=== PATIENT | male | born 1955 | race Caucasian/White ===

== ENCOUNTER 2019-04-16 02:06 | Observation (INO) | payer MEDICARE ==
[~2019-04-16] VITALS: Ht 162.6 cm; Wt 76.2 kg
[2019-04-16 02:33] LABS: BASO % 0 % (0-3); EOS % 1 % (0-3); HEMOGLOBIN 15.2 g/dL (13.0-17.5); LYMPH # 0.7 x10^3/uL (1.0-4.8); LYMPH % 11 % (24-48); MEAN CORPUSCULAR HEMOGLOBIN 32 pg (25-35); MEAN CORPUSCULAR HGB CONC 34 g/dL (31-37); MEAN CORPUSCULAR VOLUME 94 fL (79-100); MONO # 0.3 x10^3/uL (0.0-1.1); MONO % 4 % (0-9); NEUT % 85 % (31-73); PLATELET COUNT 231 x10^3/uL (140-400); RED CELL DISTRIBUTION WIDTH 13.6 % (11.5-14.5)
[2019-04-16 02:47] LABS: PROTHROMBIN TIME PATIENT 12.3 SEC (11.7-14.0)
[2019-04-16 02:49] LABS: CREATININE 1.1 mg/dL (0.7-1.3); GFR 67.2; POTASSIUM 4.4 mmol/L (3.5-5.1)
[2019-04-16 02:55] LABS: ALBUMIN 3.9 g/dL (3.4-5.0); ALBUMIN/GLOBULIN RATIO 1.2 (1.0-1.7); TOTAL BILIRUBIN 0.4 mg/dL (0.2-1.0); TOTAL PROTEIN 7.1 g/dL (6.4-8.2)
[2019-04-16] MEDS ORDERED: ASPIRIN CHEWABLE 81 MG TABLET. PO ONE (03:00)
[2019-04-16] MEDS ORDERED: NITROGLYCERIN OINT 1 GM PACKET. TP ONE (03:00)
[2019-04-16] MEDS ORDERED: NITROGLYCERIN SUBLINGUAL 0.4 MG BOTTLE OF 25. SL PRN (03:00)
--- NOTE | 2019-04-16 03:05 | PHYS DOC ---
Past Medical History Past Medical History: Diabetes-Type II, Hepatitis Additional Past Medical Histor: HEP A Past Surgical History: Tonsillectomy Additional Past Surgical Histo: Hernia Alcohol Use: Occasionally Drug Use: None Adult General Chief Complaint Chief Complaint: CHEST PAIN HPI HPI Patient is a 63 year old discomfort like an uneasiness in his chest STARTED today. Nonradiating is related to upper abdominal discomfort earlier in the DAY. he ATE some spicy food around 8 PM he started to feel worse again. He drove himself to the ER. HE PARKED AT THE [facility]ISIT[facility] SECTION of the hospital by accident and so he actually WALKED AROUND the entire hospital said that NO WORSENING OF HIS Chest pain BUT with some mild shortness of breath associated with that. Does have a history of DAD HAD HEART PROBLEM. ALSO HX OF ELEVATED hemoglobin A1c. Review of Systems Review of Systems Constitutional: Denies fever or chills [] Eyes: Denies change in visual acuity, redness, or eye pain [] HENT: GI: Denies abdominal pain, nausea, vomiting, bloody stools or diarrhea [] : Denies dysuria or hematuria [] Musculoskeletal: Denies back pain or joint pain [] Integument: Denies rash or skin lesions [] Neurologic: Denies headache, focal weakness or sensory changes [] Endocrine: Denies polyuria or polydipsia [] All other systems were reviewed and found to be within normal limits, except as documented in this note. Current Medications Current Medications Current Medications Medications (Trade) Dose Ordered Sig/Amy Start Time Stop Time Status Last Admin Dose Admin Aspirin (Children'S Aspirin) 324 mg 1X ONCE 04/16/19 03:00 04/16/19 03:01 04/16/19 02:39 324 MG Nitroglycerin (Nitro-Bid Oint) 1 inch 1X ONCE 04/16/19 03:00 04/16/19 03:01 04/16/19 02:40 1 INCH Allergies Allergies Allergies Coded Allergies Type Severity Reaction Last Updated Verified No Known Drug Allergies 04/15/16 No Physical Exam Physical Exam Constitutional: Well developed, well nourished, no acute distress, non-toxic appearance. [] HENT: Normocephalic, atraumatic, bilateral external ears normal, oropharynx moist, no oral exudates, nose normal. [] Eyes: PERRLA, EOMI, conjunctiva normal, no discharge. [] Neck: Normal range of motion, no tenderness, supple, no stridor. [] Cardiovascular:Heart rate regular rhythm, no murmur [] Lungs & Thorax: Bilateral breath sounds clear to auscultation [] Abdomen: Bowel sounds normal, soft, no tenderness, no masses, no pulsatile masses. [] Skin: Warm, dry, no erythema, no rash. [] Back: No tenderness, no CVA tenderness. [] Extremities: No tenderness, no cyanosis, no clubbing, ROM intact, no edema. [] Neurologic: Alert and oriented X 3, normal motor function, normal sensory function, no focal deficits noted. [] Psychologic: Affect normal, judgement normal, mood normal. [] Current Patient Data Vital Signs Vital Signs Date Time Temp Pulse Resp B/P (MAP) Pulse Ox O2 Delivery O2 Flow Rate FiO2 04/16/19 02:40 57 181/83 04/16/19 02:10 97.9 18 97 Room Air 97.9 Lab Values Laboratory Tests Test 04/16/19 02:24 White Blood Count 7.0 x10^3/uL (4.0-11.0) Red Blood Count 4.80 x10^6/uL (4.30-5.70) Hemoglobin 15.2 g/dL (13.0-17.5) Hematocrit 45.0 % (39.0-53.0) Mean Corpuscular Volume 94 fL (79-100) Mean Corpuscular Hemoglobin 32 pg (25-35) Mean Corpuscular Hemoglobin Concent 34 g/dL (31-37) Red Cell Distribution Width 13.6 % (11.5-14.5) Platelet Count 231 x10^3/uL (140-400) Neutrophils (%) (Auto) 85 % (31-73) H Lymphocytes (%) (Auto) 11 % (24-48) L Monocytes (%) (Auto) 4 % (0-9) Eosinophils (%) (Auto) 1 % (0-3) Basophils (%) (Auto) 0 % (0-3) Neutrophils # (Auto) 6.0 x10^3uL (1.8-7.7) Lymphocytes # (Auto) 0.7 x10^3/uL (1.0-4.8) L Monocytes # (Auto) 0.3 x10^3/uL (0.0-1.1) Eosinophils # (Auto) 0.0 x10^3/uL (0.0-0.7) Basophils # (Auto) 0.0 x10^3/uL (0.0-0.2) Platelet Estimate Pending Prothrombin Time 12.3 SEC (11.7-14.0) Prothrombin Time INR 0.9 (0.8-1.1) Sodium Level 137 mmol/L (136-145) Potassium Level 4.4 mmol/L (3.5-5.1) Chloride Level 101 mmol/L (98-107) Carbon Dioxide Level 26 mmol/L (21-32) Anion Gap 10 (6-14) Blood Urea Nitrogen 17 mg/dL (8-26) Creatinine 1.1 mg/dL (0.7-1.3) Estimated GFR (Cockcroft-Gault) 67.2 BUN/Creatinine Ratio 15 (6-20) Glucose Level 276 mg/dL (70-99) H Calcium Level 9.0 mg/dL (8.5-10.1) Total Bilirubin 0.4 mg/dL (0.2-1.0) Aspartate Amino Transferase (AST) 20 U/L (15-37) Alanine Aminotransferase (ALT) 31 U/L (16-63) Alkaline Phosphatase 85 U/L (46-116) Troponin I Quantitative < 0.017 ng/mL (0.000-0.055) Total Protein 7.1 g/dL (6.4-8.2) Albumin 3.9 g/dL (3.4-5.0) Albumin/Globulin Ratio 1.2 (1.0-1.7) Laboratory Tests 04/16/19 02:24 Laboratory Tests 04/16/19 02:24 EKG EKG []G shows a normal sinus rhythm with rate of 67. T-wave inversions anteriorly which is new. COMPARED TO 04/15/16 Radiology/Procedures Radiology/Procedures [] Impressions: CXR MY READ NEG ACUTE. Course & Med Decision Making Course & Med Decision Making Pertinent Labs and Imaging studies reviewed. (See chart for details) []Patient is a 63-year-old male with a prior history of diabetes family history of coronary disease presenting with some vague chest discomfort. Blood pressure was mildly elevated we gave aspirin and Nitropaste in the emergency room EKG did have a change no STEMI was seen troponin negative after a whole day of symptoms patient be admitted to the [facility] SERVICE FOR FURTHER EVALUATION, SERIAL TROPS. CARDS CONSULT ETC. DOES NOT SOUND LIKE PE OR DISSECTION TO ME Dragon Disclaimer Dragon Disclaimer This electronic medical record was generated, in whole or in part, using a voice recognition dictation system. Departure Departure Impression: Primary Impression: Chest pain Disposition: ADMITTED INPATIENT Admitting Physician: [facility] Condition: STABLE Referrals: SERA COUCH JR, MD (PCP) CONSTANTIN CRONIN MD Apr 16, 2019 03:05
[2019-04-16 04:38] LABS: % EOS 1 % (0-5); % LYMPHS 13 % (24-48); % MONOS 5 % (0-10); % SEGS 81 % (35-66); PLT ESTIMATE ADEQUATE (ADEQUATE)
--- NOTE | 2019-04-16 07:40 | RAD ---
Indication:Chest pain TECHNIQUE:Portable AP chest X-ray COMPARISON: None FINDINGS: Patient is slightly rotated to the left side. Heart is normal in size. Most likely a small calcified granuloma in the right midlung zone. Otherwise, lungs are clear. No pneumothorax or pleural effusion. Visualized bony thorax is within normal limits. IMPRESSION: No acute pulmonary process. Electronically signed by: Tereso Valencia DO (04/16/2019 7:37 AM) [facility]
[2019-04-16] MEDS ORDERED: PIOG45TA40 PO (08:59)
[2019-04-16] MEDS ORDERED: GLIM2TAB2 PO (08:59)
[2019-04-16] MEDS ORDERED: ASPI-612 PO (08:59)
[2019-04-16] MEDS ORDERED: METF500T16 PO (08:59)
[2019-04-16 09:00] VITALS: BP 104/62
[2019-04-16] MEDS ORDERED: DEXTROSE 50% 25 GM / 50ML DISP.SYRIN. IV PRN (09:15)
[2019-04-16] MEDS ORDERED: FAMOTIDINE 20 MG TABLET. PO ONE (09:15)
[2019-04-16] MEDS ORDERED: PIOGLITAZONE 15 MG TABLET. PO SCH (10:00)
[2019-04-16 11:00] VITALS: BP 126/63
[2019-04-16] MEDS ORDERED: ASPI325T8 PO (11:20)
[2019-04-16] MEDS ORDERED: SIMV10TA3 PO (11:20)
--- NOTE | 2019-04-16 11:45 | PDOC2 ---
CONSULT Date of Consult Date of Consult DATE: 04/16/19 TIME: 11:45 Reason for Consult Reason for Consult: Chest pain Referring Physician Referring Physician: Dr. Garcia Identification/Chief Complaint Chief Complaint Chest pain Source Source: Chart review, Patient History of Present Illness Reason for Visit: 63-year-old male presented complaining of retrosternal chest discomfort that is slightly worse with exertion. He used to exercise and take ballroom dancing lessons in the past but has been finding it difficult with shortness of breath and fatigue while doing so since last 2 weeks. He had abdominal discomfort after eating spicy food yesterday but he stated that the chest pain he had before this episode was different. He denied any orthopnea/PND, palpitations or syncope. He has strong family history of premature coronary artery disease with his dad having heart attack when he was 50 years age. Past Medical History Past Medical History Hyperlipidemia Diabetes mellitus type 2 Past Surgical History Past Surgical History: Tonsillectomy Family History Family History: Coronary Artery Disease Social History Social History Patient denied any smoking alcohol or drug use Current Medications Current Medications Current Medications Aspirin (Children'S Aspirin) 324 mg 1X ONCE PO Last administered on 04/16/19at 02:39; Start 04/16/19 at 03:00; Stop 04/16/19 at 03:01; Status DC Nitroglycerin (Nitro-Bid Oint) 1 inch 1X ONCE TP Last administered on 04/16/19at 02:40; Start 04/16/19 at 03:00; Stop 04/16/19 at 03:01; Status DC Nitroglycerin (Nitrostat) 0.4 mg PRN Q5MIN PRN SL CHEST PAIN; Start 04/16/19 at 03:00; Stop 04/17/19 at 02:59 Insulin Human Lispro (HumaLOG) 0-7 UNITS TIDWMEALS SQ ; Start 04/16/19 at 12:00 Dextrose (Dextrose 50%-Water Syringe) 12.5 gm PRN Q15MIN PRN IV SEE COMMENTS; Start 04/16/19 at 09:15 Famotidine (Pepcid) 20 mg 1X ONCE PO Last administered on 04/16/19at 10:16; Start 04/16/19 at 09:15; Stop 04/16/19 at 09:30; Status DC Famotidine (Pepcid) 20 mg BID PO ; Start 04/16/19 at 21:00 Glimepiride (Amaryl) 2 mg BID PO ; Start 04/16/19 at 21:00 Pioglitazone HCl (Actos) 45 mg DAILY PO Last administered on 04/16/19at 10:16; Start 04/16/19 at 10:00 Active Scripts Active Aspirin 325 Mg Tablet 1 Tab PO DAILY Simvastatin 10 Mg Tablet 1 Tab PO QHS Reported Glimepiride 2 Mg Tablet 2 Mg PO BID Actos (Pioglitazone Hcl) 45 Mg Tablet 1 Tab PO DAILY Metformin Hcl 500 Mg Tablet 500 Mg PO BIDWMEALS Allergies Allergies: Coded Allergies: No Known Drug Allergies (Unverified , 04/15/16) ROS PSYCHOLOGICAL ROS: No: Hallucinations Eyes: No Loss of vision HEENT: No: Epistaxis Respiratory: No: Cough, Hemoptysis Cardiovascular: yes Chest Pain Gastrointestinal: No Vomiting Genitourinary: No Hematuria Neurological: No Seizures Skin: No Rash Physical Exam General: Alert, Oriented X3 HEENT: Atraumatic, PERRLA Lungs: Clear to auscultation Heart: Regular rate Abdomen: Soft, No tenderness Extremities: No edema Psych/Mental Status: Mood NL Vitals VITALS Vital Signs Date Time Temp Pulse Resp B/P (MAP) Pulse Ox O2 Delivery O2 Flow Rate FiO2 04/16/19 09:00 98.4 56 18 104/62 (76) 100 Room Air 98.4 Labs Labs Laboratory Tests Test 04/16/19 02:24 04/16/19 05:55 04/16/19 09:10 04/16/19 09:14 White Blood Count 7.0 x10^3/uL (4.0-11.0) Red Blood Count 4.80 x10^6/uL (4.30-5.70) Hemoglobin 15.2 g/dL (13.0-17.5) Hematocrit 45.0 % (39.0-53.0) Mean Corpuscular Volume 94 fL (79-100) Mean Corpuscular Hemoglobin 32 pg (25-35) Mean Corpuscular Hemoglobin Concent 34 g/dL (31-37) Red Cell Distribution Width 13.6 % (11.5-14.5) Platelet Count 231 x10^3/uL (140-400) Neutrophils (%) (Auto) 85 % (31-73) Lymphocytes (%) (Auto) 11 % (24-48) Monocytes (%) (Auto) 4 % (0-9) Eosinophils (%) (Auto) 1 % (0-3) Basophils (%) (Auto) 0 % (0-3) Neutrophils # (Auto) 6.0 x10^3uL (1.8-7.7) Lymphocytes # (Auto) 0.7 x10^3/uL (1.0-4.8) Monocytes # (Auto) 0.3 x10^3/uL (0.0-1.1) Eosinophils # (Auto) 0.0 x10^3/uL (0.0-0.7) Basophils # (Auto) 0.0 x10^3/uL (0.0-0.2) Segmented Neutrophils % 81 % (35-66) Lymphocytes % 13 % (24-48) Monocytes % 5 % (0-10) Eosinophils % 1 % (0-5) Platelet Estimate Adequate (ADEQUATE) Prothrombin Time 12.3 SEC (11.7-14.0) Prothromb Time International Ratio 0.9 (0.8-1.1) Sodium Level 137 mmol/L (136-145) Potassium Level 4.4 mmol/L (3.5-5.1) Chloride Level 101 mmol/L (98-107) Carbon Dioxide Level 26 mmol/L (21-32) Anion Gap 10 (6-14) Blood Urea Nitrogen 17 mg/dL (8-26) Creatinine 1.1 mg/dL (0.7-1.3) Estimated GFR (Cockcroft-Gault) 67.2 BUN/Creatinine Ratio 15 (6-20) Glucose Level 276 mg/dL (70-99) Calcium Level 9.0 mg/dL (8.5-10.1) Total Bilirubin 0.4 mg/dL (0.2-1.0) Aspartate Amino Transf (AST/SGOT) 20 U/L (15-37) Alanine Aminotransferase (ALT/SGPT) 31 U/L (16-63) Alkaline Phosphatase 85 U/L (46-116) Troponin I Quantitative < 0.017 ng/mL (0.000-0.055) < 0.017 ng/mL (0.000-0.055) < 0.017 ng/mL (0.000-0.055) Total Protein 7.1 g/dL (6.4-8.2) Albumin 3.9 g/dL (3.4-5.0) Albumin/Globulin Ratio 1.2 (1.0-1.7) Glucose (Fingerstick) 240 mg/dL (70-99) Laboratory Tests Test 04/16/19 02:24 04/16/19 05:55 04/16/19 09:10 04/16/19 09:14 White Blood Count 7.0 x10^3/uL (4.0-11.0) Red Blood Count 4.80 x10^6/uL (4.30-5.70) Hemoglobin 15.2 g/dL (13.0-17.5) Hematocrit 45.0 % (39.0-53.0) Mean Corpuscular Volume 94 fL (79-100) Mean Corpuscular Hemoglobin 32 pg (25-35) Mean Corpuscular Hemoglobin Concent 34 g/dL (31-37) Red Cell Distribution Width 13.6 % (11.5-14.5) Platelet Count 231 x10^3/uL (140-400) Neutrophils (%) (Auto) 85 % (31-73) Lymphocytes (%) (Auto) 11 % (24-48) Monocytes (%) (Auto) 4 % (0-9) Eosinophils (%) (Auto) 1 % (0-3) Basophils (%) (Auto) 0 % (0-3) Neutrophils # (Auto) 6.0 x10^3uL (1.8-7.7) Lymphocytes # (Auto) 0.7 x10^3/uL (1.0-4.8) Monocytes # (Auto) 0.3 x10^3/uL (0.0-1.1) Eosinophils # (Auto) 0.0 x10^3/uL (0.0-0.7) Basophils # (Auto) 0.0 x10^3/uL (0.0-0.2) Segmented Neutrophils % 81 % (35-66) Lymphocytes % 13 % (24-48) Monocytes % 5 % (0-10) Eosinophils % 1 % (0-5) Platelet Estimate Adequate (ADEQUATE) Prothrombin Time 12.3 SEC (11.7-14.0) Prothromb Time International Ratio 0.9 (0.8-1.1) Sodium Level 137 mmol/L (136-145) Potassium Level 4.4 mmol/L (3.5-5.1) Chloride Level 101 mmol/L (98-107) Carbon Dioxide Level 26 mmol/L (21-32) Anion Gap 10 (6-14) Blood Urea Nitrogen 17 mg/dL (8-26) Creatinine 1.1 mg/dL (0.7-1.3) Estimated GFR (Cockcroft-Gault) 67.2 BUN/Creatinine Ratio 15 (6-20) Glucose Level 276 mg/dL (70-99) Calcium Level 9.0 mg/dL (8.5-10.1) Total Bilirubin 0.4 mg/dL (0.2-1.0) Aspartate Amino Transf (AST/SGOT) 20 U/L (15-37) Alanine Aminotransferase (ALT/SGPT) 31 U/L (16-63) Alkaline Phosphatase 85 U/L (46-116) Troponin I Quantitative < 0.017 ng/mL (0.000-0.055) < 0.017 ng/mL (0.000-0.055) < 0.017 ng/mL (0.000-0.055) Total Protein 7.1 g/dL (6.4-8.2) Albumin 3.9 g/dL (3.4-5.0) Albumin/Globulin Ratio 1.2 (1.0-1.7) Glucose (Fingerstick) 240 mg/dL (70-99) Assessment/Plan Assessment/Plan 1. Chest pain slightly worse with exertion concerning for cardiac etiology terry cially considering his multiple cardiovascular risk factors and strong family history of premature coronary artery disease. Myocardial infarction has been ruled out. He was recommended cardiac catheterization for definitive evaluation but he would like to get this done next week as an outpatient. He was advised to refrain from exertion and call [phone] if he has further episodes of chest pain. We will also obtain 2-D echocardiogram when he presents for cardiac catheterization. 2. Hypertension: Controlled 3. Hyperlipidemia: Statins 4. DM2: Per IM Thank you for your consultation BIGG MERRITT MD Apr 16, 2019 11:45
[2019-04-16] MEDS ORDERED: INSULIN LISPRO 300 UNITS/3 ML INSULN.PEN. SQ SCH (12:00)
--- NOTE | 2019-04-16 12:05 | EKG ---
[address] [place] [address] Test Date: 2019-04-16 Test Time: 02:14:51 Pat Name: CECE DURAN Department: Room: Gender: M Community Relations Manager: : [id number] Requested By: CONSTANTIN CRONIN Order Number: [id number] Reading MD: Measurements Intervals [place] Rate: 66 P: 36 MD: 244 QRS: -26 QRSD: 52 T: 7 QT: 406 QTc: 431 Interpretive Statements SINUS RHYTHM PROLONGED MD INTERVAL LEFTWARD AXIS R-S TRANSITION ZONE IN V LEADS DISPLACED TO THE RIGHT T ABNORMALITY IN ANTEROSEPTAL LEADS NON SPECIFIC ST DEPRESSION ABNORMAL ECG No previous ECG available for comparison
--- NOTE | 2019-04-16 12:57 | PDOC1 ---
History and Physical Date of Admission Date of Admission DATE: 04/16/19 TIME: 12:53 Source Source: Chart review, Patient History of Present Illness History of Present Illness Mr. Hernandez is a 63 year old admit with chest discomfort, he declined that is it was every really pain, maybe 1/10 or 2/10 mid sternal pain. but marked exercise intolerance lately, when he usually jogs a mile for exercise and takes ballroom dancing lessons and has had trouble doing that for almost 2 weeks and that is getting worse chest machuca was lower abd then upper chest and he also reports much worse after spicy food. no pain later this AM Past Medical History Cardiovascular: No pertinent hx Pulmonary: No pertinent hx GI: No pertinent hx Endocrine: Diabetes Past Surgical History Past Surgical History: No pertinent history Family History Family History: Coronary Artery Disease, Heart Disease Family History: Parent, Grandparents, Other Social History Smoke: No ALCOHOL: rare (1 beer per week) Drugs: None Current Medications Current Medications Current Medications Aspirin (Children'S Aspirin) 324 mg 1X ONCE PO Last administered on 04/16/19at 02:39; Start 04/16/19 at 03:00; Stop 04/16/19 at 03:01; Status DC Nitroglycerin (Nitro-Bid Oint) 1 inch 1X ONCE TP Last administered on 04/16/19at 02:40; Start 04/16/19 at 03:00; Stop 04/16/19 at 03:01; Status DC Nitroglycerin (Nitrostat) 0.4 mg PRN Q5MIN PRN SL CHEST PAIN; Start 04/16/19 at 03:00; Stop 04/17/19 at 02:59 Insulin Human Lispro (HumaLOG) 0-7 UNITS TIDWMEALS SQ ; Start 04/16/19 at 12:00 Dextrose (Dextrose 50%-Water Syringe) 12.5 gm PRN Q15MIN PRN IV SEE COMMENTS; Start 04/16/19 at 09:15 Famotidine (Pepcid) 20 mg 1X ONCE PO Last administered on 04/16/19at 10:16; Start 04/16/19 at 09:15; Stop 04/16/19 at 09:30; Status DC Famotidine (Pepcid) 20 mg BID PO ; Start 04/16/19 at 21:00 Glimepiride (Amaryl) 2 mg BID PO ; Start 04/16/19 at 21:00 Pioglitazone HCl (Actos) 45 mg DAILY PO Last administered on 04/16/19at 10:16; Start 04/16/19 at 10:00 Active Scripts Active Aspirin 325 Mg Tablet 1 Tab PO DAILY Simvastatin 10 Mg Tablet 1 Tab PO QHS Reported Glimepiride 2 Mg Tablet 2 Mg PO BID Actos (Pioglitazone Hcl) 45 Mg Tablet 1 Tab PO DAILY Metformin Hcl 500 Mg Tablet 500 Mg PO BIDWMEALS Allergies Allergies: Coded Allergies: No Known Drug Allergies (Unverified , 04/15/16) ROS General: YES: Fatigue; No: Chills, Night Sweats, Malaise, Appetite, Other PSYCHOLOGICAL ROS: No: Anxiety, Behavioral Disorder, Concentration difficultie, Decreased libido, Depression, Disorientation, Hallucinations, Hostility, Irritablity, Memory difficulties, Mood Swings, Obsessive thoughts, Physical abuse, Sexual abuse, Sleep disturbances, Suicidal ideation, Other Eyes: No Blurry vision, No Decreased vision, No Double vision, No Dry eyes, No Excessive tearing, No Eye Pain, No Itchy Eyes, No Loss of vision, No Photophobia, No Scotomata, No Uses contacts, No Uses glasses, No Other HEENT: No: Heacaches, Visual Changes, Hearing change, Nasal congestion, Nasal discharge, Oral lesions, Sinus pain, Sore Throat, Epistaxis, Sneezing, Snoring, Tinnitus, Vertigo, Vocal changes, Other Respiratory: No: Cough, Hemoptysis, Orthopnea, Pleuritic Pain, Shortness of breath, SOB with excertion, Sputum Changes, Stridor, Tachypnea, Wheezing, Other Cardiovascular: yes Chest Pain; No Palpitations, No Orthopnea, No Paroxysmal Noc. Dyspnea, No Edema, No Lt Headedness, No Other Gastrointestinal: No Nausea, No Vomiting, No Abdominal Pain, No Diarrhea, No Constipation, No Melena, No Hematochezia, No Other Musculoskeletal: Yes Joint Stiffness; No Gait Disturbance, No Joint Pain, No Joint Swelling, No Muscle Pain, No Muscular Weakness, No Pain In:, No Swelling In:, No Other Neurological: No Behavorial Changes, No Bowel/Bladder ControlChng, No Confusion, No Dizziness, No Gait Disturbance, No Headaches, No Impaired Coord/balance, No Memory Loss, No Numbness/Tingling, No Seizures, No Speech Prob lems, No Tremors, No Visual Changes, No Weakness, No Other Skin: No Eczema, No Hair Changes, No Lumps, No Mole Changes, No Mottling, No Nail Changes, No Pruritus, No Rash, No Skin Lesion Changes, No Other, No Acne Physical Exam General: Alert, Oriented X3, Cooperative HEENT: Atraumatic, PERRLA Lungs: Clear to auscultation Heart: S1S2, RRR Extremities: No clubbing Neuro: Normal speech, Normal tone, Cranial nerves 3-12 NL Psych/Mental Status: Mental status NL, Mood NL Vitals Vitals Vital Signs Date Time Temp Pulse Resp B/P (MAP) Pulse Ox O2 Delivery O2 Flow Rate FiO2 04/16/19 11:00 98.1 50 18 126/63 (84) 98 Room Air 98.1 Labs Labs Laboratory Tests Test 04/16/19 02:24 04/16/19 05:55 04/16/19 09:10 04/16/19 09:14 White Blood Count 7.0 x10^3/uL (4.0-11.0) Red Blood Count 4.80 x10^6/uL (4.30-5.70) Hemoglobin 15.2 g/dL (13.0-17.5) Hematocrit 45.0 % (39.0-53.0) Mean Corpuscular Volume 94 fL (79-100) Mean Corpuscular Hemoglobin 32 pg (25-35) Mean Corpuscular Hemoglobin Concent 34 g/dL (31-37) Red Cell Distribution Width 13.6 % (11.5-14.5) Platelet Count 231 x10^3/uL (140-400) Neutrophils (%) (Auto) 85 % (31-73) Lymphocytes (%) (Auto) 11 % (24-48) Monocytes (%) (Auto) 4 % (0-9) Eosinophils (%) (Auto) 1 % (0-3) Basophils (%) (Auto) 0 % (0-3) Neutrophils # (Auto) 6.0 x10^3uL (1.8-7.7) Lymphocytes # (Auto) 0.7 x10^3/uL (1.0-4.8) Monocytes # (Auto) 0.3 x10^3/uL (0.0-1.1) Eosinophils # (Auto) 0.0 x10^3/uL (0.0-0.7) Basophils # (Auto) 0.0 x10^3/uL (0.0-0.2) Segmented Neutrophils % 81 % (35-66) Lymphocytes % 13 % (24-48) Monocytes % 5 % (0-10) Eosinophils % 1 % (0-5) Platelet Estimate Adequate (ADEQUATE) Prothrombin Time 12.3 SEC (11.7-14.0) Prothromb Time International Ratio 0.9 (0.8-1.1) Sodium Level 137 mmol/L (136-145) Potassium Level 4.4 mmol/L (3.5-5.1) Chloride Level 101 mmol/L (98-107) Carbon Dioxide Level 26 mmol/L (21-32) Anion Gap 10 (6-14) Blood Urea Nitrogen 17 mg/dL (8-26) Creatinine 1.1 mg/dL (0.7-1.3) Estimated GFR (Cockcroft-Gault) 67.2 BUN/Creatinine Ratio 15 (6-20) Glucose Level 276 mg/dL (70-99) Calcium Level 9.0 mg/dL (8.5-10.1) Total Bilirubin 0.4 mg/dL (0.2-1.0) Aspartate Amino Transf (AST/SGOT) 20 U/L (15-37) Alanine Aminotransferase (ALT/SGPT) 31 U/L (16-63) Alkaline Phosphatase 85 U/L (46-116) Troponin I Quantitative < 0.017 ng/mL (0.000-0.055) < 0.017 ng/mL (0.000-0.055) < 0.017 ng/mL (0.000-0.055) Total Protein 7.1 g/dL (6.4-8.2) Albumin 3.9 g/dL (3.4-5.0) Albumin/Globulin Ratio 1.2 (1.0-1.7) Glucose (Fingerstick) 240 mg/dL (70-99) Test 04/16/19 12:16 Glucose (Fingerstick) 151 mg/dL (70-99) Laboratory Tests Test 04/16/19 02:24 04/16/19 05:55 04/16/19 09:10 04/16/19 09:14 White Blood Count 7.0 x10^3/uL (4.0-11.0) Red Blood Count 4.80 x10^6/uL (4.30-5.70) Hemoglobin 15.2 g/dL (13.0-17.5) Hematocrit 45.0 % (39.0-53.0) Mean Corpuscular Volume 94 fL (79-100) Mean Corpuscular Hemoglobin 32 pg (25-35) Mean Corpuscular Hemoglobin Concent 34 g/dL (31-37) Red Cell Distribution Width 13.6 % (11.5-14.5) Platelet Count 231 x10^3/uL (140-400) Neutrophils (%) (Auto) 85 % (31-73) Lymphocytes (%) (Auto) 11 % (24-48) Monocytes (%) (Auto) 4 % (0-9) Eosinophils (%) (Auto) 1 % (0-3) Basophils (%) (Auto) 0 % (0-3) Neutrophils # (Auto) 6.0 x10^3uL (1.8-7.7) Lymphocytes # (Auto) 0.7 x10^3/uL (1.0-4.8) Monocytes # (Auto) 0.3 x10^3/uL (0.0-1.1) Eosinophils # (Auto) 0.0 x10^3/uL (0.0-0.7) Basophils # (Auto) 0.0 x10^3/uL (0.0-0.2) Segmented Neutrophils % 81 % (35-66) Lymphocytes % 13 % (24-48) Monocytes % 5 % (0-10) Eosinophils % 1 % (0-5) Platelet Estimate Adequate (ADEQUATE) Prothrombin Time 12.3 SEC (11.7-14.0) Prothromb Time International Ratio 0.9 (0.8-1.1) Sodium Level 137 mmol/L (136-145) Potassium Level 4.4 mmol/L (3.5-5.1) Chloride Level 101 mmol/L (98-107) Carbon Dioxide Level 26 mmol/L (21-32) Anion Gap 10 (6-14) Blood Urea Nitrogen 17 mg/dL (8-26) Creatinine 1.1 mg/dL (0.7-1.3) Estimated GFR (Cockcroft-Gault) 67.2 BUN/Creatinine Ratio 15 (6-20) Glucose Level 276 mg/dL (70-99) Calcium Level 9.0 mg/dL (8.5-10.1) Total Bilirubin 0.4 mg/dL (0.2-1.0) Aspartate Amino Transf (AST/SGOT) 20 U/L (15-37) Alanine Aminotransferase (ALT/SGPT) 31 U/L (16-63) Alkaline Phosphatase 85 U/L (46-116) Troponin I Quantitative < 0.017 ng/mL (0.000-0.055) < 0.017 ng/mL (0.000-0.055) < 0.017 ng/mL (0.000-0.055) Total Protein 7.1 g/dL (6.4-8.2) Albumin 3.9 g/dL (3.4-5.0) Albumin/Globulin Ratio 1.2 (1.0-1.7) Glucose (Fingerstick) 240 mg/dL (70-99) Test 04/16/19 12:16 Glucose (Fingerstick) 151 mg/dL (70-99) VTE Prophylaxis Ordered VTE Prophylaxis Devices: No VTE Pharmacological Prophylaxi: No Assessment/Plan Assessment/Plan chest pain, angina, mid chest pain new weakness, exercise intolerance, Dm2, good control, Hgb A1c 7.5, but he had many questions on getting it down to 7.0, very motivated patient obs, CV consult JES VALDEZ MD Apr 16, 2019 12:57
--- NOTE | 2019-04-16 13:00 | PDOC3 ---
Discharge Summary Visit Information Date of Admission: Apr 16, 2019 Date of Discharge: Apr 16, 2019 Admitting Diagnosis: chest pain Final Diagnosis chest pain, angina, mid chest pain new weakness, exercise intolerance, Dm2, good control, Hgb A1c 7.5, but he had many questions on getting it down to 7.0, very motivated patient poss GERD Brief Hospital Course Allergies Allergies Coded Allergies Type Severity Reaction Last Updated Verified No Known Drug Allergies 04/15/16 No Vital Signs Vital Signs Date Time Temp Pulse Resp B/P (MAP) Pulse Ox O2 Delivery O2 Flow Rate FiO2 04/16/19 11:00 98.1 50 18 126/63 (84) 98 Room Air 98.1 Lab Results Laboratory Tests Test 04/16/19 02:24 04/16/19 05:55 04/16/19 09:10 04/16/19 09:14 White Blood Count 7.0 x10^3/uL (4.0-11.0) Red Blood Count 4.80 x10^6/uL (4.30-5.70) Hemoglobin 15.2 g/dL (13.0-17.5) Hematocrit 45.0 % (39.0-53.0) Mean Corpuscular Volume 94 fL (79-100) Mean Corpuscular Hemoglobin 32 pg (25-35) Mean Corpuscular Hemoglobin Concent 34 g/dL (31-37) Red Cell Distribution Width 13.6 % (11.5-14.5) Platelet Count 231 x10^3/uL (140-400) Neutrophils (%) (Auto) 85 % (31-73) Lymphocytes (%) (Auto) 11 % (24-48) Monocytes (%) (Auto) 4 % (0-9) Eosinophils (%) (Auto) 1 % (0-3) Basophils (%) (Auto) 0 % (0-3) Neutrophils # (Auto) 6.0 x10^3uL (1.8-7.7) Lymphocytes # (Auto) 0.7 x10^3/uL (1.0-4.8) Monocytes # (Auto) 0.3 x10^3/uL (0.0-1.1) Eosinophils # (Auto) 0.0 x10^3/uL (0.0-0.7) Basophils # (Auto) 0.0 x10^3/uL (0.0-0.2) Segmented Neutrophils % 81 % (35-66) Lymphocytes % 13 % (24-48) Monocytes % 5 % (0-10) Eosinophils % 1 % (0-5) Platelet Estimate Adequate (ADEQUATE) Prothrombin Time 12.3 SEC (11.7-14.0) Prothromb Time International Ratio 0.9 (0.8-1.1) Sodium Level 137 mmol/L (136-145) Potassium Level 4.4 mmol/L (3.5-5.1) Chloride Level 101 mmol/L (98-107) Carbon Dioxide Level 26 mmol/L (21-32) Anion Gap 10 (6-14) Blood Urea Nitrogen 17 mg/dL (8-26) Creatinine 1.1 mg/dL (0.7-1.3) Estimated GFR (Cockcroft-Gault) 67.2 BUN/Creatinine Ratio 15 (6-20) Glucose Level 276 mg/dL (70-99) Calcium Level 9.0 mg/dL (8.5-10.1) Total Bilirubin 0.4 mg/dL (0.2-1.0) Aspartate Amino Transf (AST/SGOT) 20 U/L (15-37) Alanine Aminotransferase (ALT/SGPT) 31 U/L (16-63) Alkaline Phosphatase 85 U/L (46-116) Troponin I Quantitative < 0.017 ng/mL (0.000-0.055) < 0.017 ng/mL (0.000-0.055) < 0.017 ng/mL (0.000-0.055) Total Protein 7.1 g/dL (6.4-8.2) Albumin 3.9 g/dL (3.4-5.0) Albumin/Globulin Ratio 1.2 (1.0-1.7) Glucose (Fingerstick) 240 mg/dL (70-99) Test 04/16/19 12:16 Glucose (Fingerstick) 151 mg/dL (70-99) Laboratory Tests Test 04/16/19 02:24 04/16/19 05:55 04/16/19 09:10 04/16/19 09:14 White Blood Count 7.0 x10^3/uL (4.0-11.0) Red Blood Count 4.80 x10^6/uL (4.30-5.70) Hemoglobin 15.2 g/dL (13.0-17.5) Hematocrit 45.0 % (39.0-53.0) Mean Corpuscular Volume 94 fL (79-100) Mean Corpuscular Hemoglobin 32 pg (25-35) Mean Corpuscular Hemoglobin Concent 34 g/dL (31-37) Red Cell Distribution Width 13.6 % (11.5-14.5) Platelet Count 231 x10^3/uL (140-400) Neutrophils (%) (Auto) 85 % (31-73) Lymphocytes (%) (Auto) 11 % (24-48) Monocytes (%) (Auto) 4 % (0-9) Eosinophils (%) (Auto) 1 % (0-3) Basophils (%) (Auto) 0 % (0-3) Neutrophils # (Auto) 6.0 x10^3uL (1.8-7.7) Lymphocytes # (Auto) 0.7 x10^3/uL (1.0-4.8) Monocytes # (Auto) 0.3 x10^3/uL (0.0-1.1) Eosinophils # (Auto) 0.0 x10^3/uL (0.0-0.7) Basophils # (Auto) 0.0 x10^3/uL (0.0-0.2) Segmented Neutrophils % 81 % (35-66) Lymphocytes % 13 % (24-48) Monocytes % 5 % (0-10) Eosinophils % 1 % (0-5) Platelet Estimate Adequate (ADEQUATE) Prothrombin Time 12.3 SEC (11.7-14.0) Prothromb Time International Ratio 0.9 (0.8-1.1) Sodium Level 137 mmol/L (136-145) Potassium Level 4.4 mmol/L (3.5-5.1) Chloride Level 101 mmol/L (98-107) Carbon Dioxide Level 26 mmol/L (21-32) Anion Gap 10 (6-14) Blood Urea Nitrogen 17 mg/dL (8-26) Creatinine 1.1 mg/dL (0.7-1.3) Estimated GFR (Cockcroft-Gault) 67.2 BUN/Creatinine Ratio 15 (6-20) Glucose Level 276 mg/dL (70-99) Calcium Level 9.0 mg/dL (8.5-10.1) Total Bilirubin 0.4 mg/dL (0.2-1.0) Aspartate Amino Transf (AST/SGOT) 20 U/L (15-37) Alanine Aminotransferase (ALT/SGPT) 31 U/L (16-63) Alkaline Phosphatase 85 U/L (46-116) Troponin I Quantitative < 0.017 ng/mL (0.000-0.055) < 0.017 ng/mL (0.000-0.055) < 0.017 ng/mL (0.000-0.055) Total Protein 7.1 g/dL (6.4-8.2) Albumin 3.9 g/dL (3.4-5.0) Albumin/Globulin Ratio 1.2 (1.0-1.7) Glucose (Fingerstick) 240 mg/dL (70-99) Test 04/16/19 12:16 Glucose (Fingerstick) 151 mg/dL (70-99) Brief Hospital Course Mr. Hernandez is a 63 old male, strong fam history of CAD, small mid chest discomfort, marked new exercise intolerance. CV consulted, plan to cath as outpatient in 2 days, w/u angina Discharge Information Condition at Discharge: Improved Follow Up: Weeks Disposition/Orders: D/C to Home Scheduled Aspirin (Aspirin) 325 Mg Tablet, 1 TAB PO DAILY for cardiac, #30 Prescribed by: JES VALDEZ on 04/16/19 1120 Glimepiride (Glimepiride) 2 Mg Tablet, 2 MG PO BID for dm, (Reported) Entered as Reported by: JAGDISH JAIMES on 04/16/19858 Last Taken: Unknown Dose on 04/16/19 Last Action: Continued on 04/16/19916 by JES VALDEZ Metformin Hcl (Metformin Hcl) 500 Mg Tablet, 500 MG PO BIDWMEALS for ANTI- DIABETIC, Ref 0 (Reported) Entered as Reported by: JAGDISH JAIMES on 04/16/19858 Last Taken: Unknown Dose on 04/16/19 Last Action: HELD on 04/16/19916 by JES VALDEZ Pioglitazone Hcl (Actos) 45 Mg Tablet, 1 TAB PO DAILY for dm, #30 Ref 5 (Reported) Entered as Reported by: JAGDISH JAIMES on 04/16/19858 Last Taken: Unknown Dose on 04/16/19 Last Action: Converted on 04/16/19916 by JES VALDEZ Simvastatin (Simvastatin) 10 Mg Tablet, 1 TAB PO QHS for cardiac, #30 Prescribed by: JES VALDEZ on 04/16/19 1120 Discontinued Medications Aspirin (Aspirin Ec) 81 Mg Tablet.dr, 1 TAB PO DAILY for heart, #30 Ref 3 (Reported) Entered as Reported by: JAGDISH JAIMES on 04/16/19 0859 Last Taken: Unknown Dose on 04/16/19 Last Action: HELD on 04/16/19916 by JES VALDEZ Patient Instructions Patient Instructions A/D same day JES VALDEZ MD Apr 16, 2019 13:00
[2019-04-16] MEDS ORDERED: FAMOTIDINE 20 MG TABLET. PO SCH (21:00)
[2019-04-16] MEDS ORDERED: GLIMEPIRIDE 2 MG TABLET. PO SCH (21:00)
[2019-04-17 01:07] LABS: HEMOGLOBIN A1C 7.4 % (4.8-5.6)
== END 2019-04-16 14:00 | disposition home or self-care (01) ==
LOC: ER 02:06 → ED HOLD 04:06 → 2 SOUTH 08:28
PROVIDERS: ADMIT Internal Medicine; ATTEND Internal Medicine
DX: I20.9 Angina pectoris, unspecified (principal); E11.9 Type 2 diabetes mellitus without complications; E78.5 Hyperlipidemia, unspecified; R53.1 Weakness; Z82.49 Family history of ischemic heart disease and other diseases of the circulatory system; Z98.890 Other specified postprocedural states
CPT/HCPCS: 36415; 71045; 80053; 82962; 83036; 84484; 85007; 85025; 85610; 93005; 99284; G0378; G0379; J1815

== ENCOUNTER 2019-04-22 06:30 | Outpatient (CLI) | payer MEDICARE ==
[~2019-04-22] VITALS: Ht 162.6 cm; Wt 77.1 kg
[2019-04-22] VITALS (24 sets, daily range): BP systolic 120–161; BP diastolic 76–93
[~2019-04-22 06:30] MED LIST: ASPI-612 PO; ASPI325T8 PO; GLIM2TAB2 PO; METF500T16 PO; PIOG45TA40 PO; SIMV10TA3 PO
[2019-04-22 07:20] LABS: HEMOGLOBIN 14.6 g/dL (13.0-17.5); RED BLOOD COUNT 4.64 x10^6/uL (4.30-5.70); RED CELL DISTRIBUTION WIDTH 13.3 % (11.5-14.5); WHITE BLOOD COUNT 5.9 x10^3/uL (4.0-11.0)
[2019-04-22 07:27] LABS: PROTHROMBIN TIME PATIENT 12.3 SEC (11.7-14.0)
[2019-04-22] MEDS ORDERED: HEPARIN for ARTERIAL LINE 1,500 ML ONE (07:33)
[2019-04-22] MEDS ORDERED: IODIXANOL 320 MG/ML 100 ML VIAL. ONE ×2 (07:33→09:18)
[2019-04-22 07:42] LABS: CALCIUM 8.7 mg/dL (8.5-10.1); CREATININE 1.2 mg/dL (0.7-1.3); GFR 60.8; POTASSIUM 4.1 mmol/L (3.5-5.1)
[2019-04-22] MEDS ORDERED: LIDOCAINE 1% PF 2 ML VIAL. ONE (07:51)
[2019-04-22] MEDS ORDERED: HEPARIN for IV BOLUS 10,000 UNIT/10 ML VIAL. ONE (08:21)
[2019-04-22] MEDS ORDERED: fentaNYL PF VIAL 100 MCG/2 ML VIAL ONE (08:21)
[2019-04-22] MEDS ORDERED: MIDAZOLAM HCL/PF 2 MG/2 ML VIAL. ONE (08:21)
[2019-04-22] MEDS ORDERED: NITROGLYCERIN 200 MCG/2 ML SYRINGE FOR CATH/VASC LAB. ONE ×2 (08:22→09:32)
[2019-04-22] MEDS ORDERED: VERAPAMIL 5 MG/2 ML VIAL. ONE (08:22)
[2019-04-22] MEDS ORDERED: BIVALIRUDIN 250 MG VIAL. IV ONE ×2 (08:52→09:15)
[2019-04-22] MEDS ORDERED: VERAPAMIL 5 MG/2 ML VIAL. IART ONE (09:15)
[2019-04-22] MEDS ORDERED: IV NORMAL SALINE 1000ML BAG 1,000 ML IV SCH (09:15)
[2019-04-22] MEDS ORDERED: fentaNYL PF VIAL 100 MCG/2 ML VIAL IV ONE (09:15)
[2019-04-22] MEDS ORDERED: LIDOCAINE 1% PF 2 ML VIAL. INJ ONE (09:15)
[2019-04-22] MEDS ORDERED: IODIXANOL 320 MG/ML 100 ML VIAL. IART ONE (09:15)
[2019-04-22] MEDS ORDERED: NITROGLYCERIN 200 MCG/2 ML SYRINGE FOR CATH/VASC LAB. IART ONE (09:15)
[2019-04-22] MEDS ORDERED: HEPARIN for IV BOLUS 10,000 UNIT/10 ML VIAL. IART ONE (09:15)
[2019-04-22] MEDS ORDERED: MIDAZOLAM HCL/PF 2 MG/2 ML VIAL. IV ONE (09:15)
[2019-04-22] MEDS ORDERED: ASPIRIN 325 MG TABLET PO ONE (09:30)
[2019-04-22] MEDS ORDERED: PRASUGREL 10 MG TABLET. PO ONE (09:30)
[2019-04-22] MEDS ORDERED: PRASUGREL 10 MG TABLET. ONE (09:31)
--- NOTE | 2019-04-22 10:09 | CARD ---
MR#: [id number] Date of Study: 04/22/2019 Ordering Physician: BIGG MERRITT, Referring Physician: BIGG MERRITT Tech: RT Hugo (R) APPROVED REPORT Technologist: Jennyfer Felix RT (R) Nurse: Elena Carson R.N. Procedure(s) performed: 1. Left heart catheterization, selective coronary angiography and left ventr iculography via right transradial approach 2. Successful PCI/drug eluting stents placement to the left anterior descending artery Fluoro time: 18 minutes Dose:120 Gycm2 Contrast: 253cc Moderate sedation: 62 minutes INDICATION The indication(s) include : unstable angina . CSHA Clinical Frailty Scale CS Clinical Frailty Scale: Very Fit Heart Failure Heart Failure: No PROCEDURE NARRATIVE After explaining the risks, benefits and alternative options, informed consent was obtained from edilma ent. Patient was brought to the cardiac Digital Content Manager and right wrist was prepped and draped in the usual fashion after confirming a positive modified Hitesh's test. Arterial access was obtained in the righ t radial artery and a 6 Yi sheath was inserted. 6 Yi Oscar catheter was used to perform fatuma ective angiography of the left and right coronary arteries. 6 Yi pigtail catheter was used to pe rform left ventriculography. The following findings were noted. FINDINGS 1. Hemodynamics: Left ventricular end-diastolic pressure of 22 mmHg. No pullback gradient across th e aortic valve. 2. Left ventriculography: Mild hypokinesis of the mid to distal anterolateral wall with ejection fra ction estimated at 50%. No significant mitral regurgitation seen. 3. Coronary angiography: a. The left main coronary artery arose from the left sinus of Valsalva, gave rise to the left anteri or descending and left circumflex arteries and did not show any significant stenosis. b. The left anterior descending artery showed 90% stenosis in the midsegment and 80% stenosis in the mid to distal segment. c. The left circumflex artery did not show any significant stenosis. d. The right coronary artery was a large and dominant vessel arising from the right sinus of Valsalv a that did not show any significant stenosis. INTERVENTION The left main coronary artery was engaged with XB 3.5 guide catheter and the stenoses in the left ant erior descending artery were crossed with a 0.014 inch Bellco Pro water guidewire. These were predilat ed with a 2.5 x 15 mm trek balloon following which there was successfully treated with overlapping 2. 75 x 15 mm and 3.0 x 18 mm Xience Alpine drug-eluting stents. Follow-up angiography showed 70% stenos is at the distal edge of the stent either from edge dissection or proximal shift. This was treated harris ccessfully with overlapping 2.5 x 12 mm Xience Alpine drug-eluting stent. Final angiography showed re solution of all the lesions to 0% with MICHELINE-3 distal flow. Patient tolerated the procedure well. Hemo stasis was achieved using TR band. There were no immediate complications. MICHELINE Flow MICHELINE Flow (Pre-Intervention): MICHELINE-2 MICHELINE Flow (Post-Intervention): MICHELINE-3 Conclusion 1. Severe single-vessel coronary artery disease involving left anterior descending artery 2. Successful PCI/drug eluting stents placement to the left anterior descending artery 3. Mild hypokinesis of the mid to distal anterolateral wall with ejection fraction estimated at 50%. Recommendations 1. Aspirin 325 mg daily for one month followed by 81 mg daily 2. Effient 10 mg daily for preferably one year 3. Cardiovascular risk factor modification including statin therapy. Consider Jardiance for his diab etes to improve cardiovascular outcomes. Signed by : Bigg Merritt, Electronically Approved : 04/22/2019 10:09:07
[2019-04-22] MEDS ORDERED: IV 1/2 NORMAL SALINE 1,000 ML IV SCH (10:10)
--- NOTE | 2019-04-22 10:10 | PDOC ---
MODERATE SEDATION ASSESSMENT RISKS/ALTERNATIVES Risks/Alternatives Risks and alternatives of this type of sedation and procedure discussed with: RISK/ALTERNATIVES: Patient H & P ON CHART H & P H & P on chart and reviewed for co-morbid conditions and appropriate labs. H&P ON CHART: Yes STATUS PREG STATUS ASSESSED: N/A MEDS/ALLERGIES REVIEWED Meds/Allergies Reviewed Medications and Allergies including time and route of recently administered narcotics and sedatives. MEDS/ALLERGIES REVIEWED: Yes ASA RATING ASA RATING: II AIRWAY ASSESSMENT Airway Assessment Airway patency, oral function limitations, presence of caps, crowns, dentures, partials, and ability to extend neck assessed. AIRWAY ASSESSMENT: Yes MALLAMPATI SCORE MALLAMPATI SCORE: II PRE-SEDATION ASSESSMENT PRE-SEDATION ASSESSMENT: Yes BIGG MERRITT MD Apr 22, 2019 10:10
[2019-04-22] MEDS ORDERED: ASPIRIN ENTERIC COATED 325 MG TABLET.DR. PO SCH (11:00)
--- NOTE | 2019-04-22 11:16 | CARD ---
MR#: [id number] Date of Study: 04/22/2019 Ordering Physician: BIGG MERRITT, Referring Physician: BIGG MERRITT, Tech: Cielo Mortensen APPROVED REPORT EXAM: Two-dimensional and M-mode echocardiogram with Doppler and color Doppler. Other Information Quality : GoodHR: 60bpm INDICATION Chest Pain RISK FACTORS Diabetes 2D DIMENSIONS RVDd3.3 (2.9-3.5cm)Left Atrium(2D)4.0 (1.6-4.0cm) IVSd0.8 (0.7-1.1cm)Aortic Root(2D)3.5 (2.0-3.7cm) LVDd5.2 (3.9-5.9cm)LVOT Diameter2.3 (1.8-2.4cm) PWd0.9 (0.7-1.1cm)LVDs3.3 (2.5-4.0cm) FS (%) 36.2 %SV84.4 ml Aortic Valve AoV Peak Haresh.118.0cm/sAoV VTI26.5cm AO Peak GR.5.6mmHgLVOT VTI 17.68cm AO Mean GR.3mmHgAI P 1/2 [id number] Mitral Valve MV E Jueptoes23.2cm/sMV DECEL [id number] MV A Myvwvtdj48.5cm/sE/A Ratio1.2 TDI Lateral E' P. V5.73cm/sMedial E' P. V7.08cm/s E/Lateral E'12.1E/Medial E'9.8 Tricuspid Valve TR P. Uuwlvgcg714zj/sRAP SQHDGXNO4rgNn TR Peak Gr.99brWiIHRR54sjGr Pulmonary Vein S1 Kuosiroj02.6cm/sS2 Xocjstcc51.45cm/s D2 Gpojerzq95.5cm/sPVa ahhholcy012jqtf LEFT VENTRICLE The left ventricle is normal size. There is normal left ventricular wall thickness. The left ventricu lar systolic function is normal and the ejection fraction is within normal range. The Ejection Fracti on is 55-60%. There is normal LV segmental wall motion. Transmitral Doppler flow pattern is Grade II- pseudonormal filling dynamics. RIGHT VENTRICLE The right ventricle is borderline dilated. There is normal right ventricular wall thickness. The righ t ventricular systolic function is normal. ATRIA The left atrium is borderline dilated. The right atrium size is normal. The interatrial septum is int act with no evidence for an atrial septal defect or patent foramen ovale as noted on 2-D or Doppler i maging. AORTIC VALVE The aortic valve is calcified but opens well. Doppler and Color Flow revealed no significant aortic r egurgitation. There is no significant aortic valvular stenosis. MITRAL VALVE The mitral valve is normal in structure and function. There is no evidence of mitral valve prolapse. There is no mitral valve stenosis. Doppler and Color Flow revealed no mitral valve regurgitation note d. TRICUSPID VALVE The tricuspid valve is normal in structure and function. Doppler and Color Flow revealed trace tricus pid regurgitation with an estimated PAP of 24 mmHg. There is no tricuspid valve stenosis. PULMONIC VALVE The pulmonary valve is normal in structure and function. GREAT VESSELS The aortic root is normal in size. The IVC is normal in size and collapses >50% with inspiration. PERICARDIAL EFFUSION There is no evidence of significant pericardial effusion. Critical Notification Critical Value: No <Conclusion> The left ventricle is normal size. The left ventricular systolic function is normal and the ejection fraction is within normal range. The Ejection Fraction is 55-60%. There is no significant aortic valvular stenosis. Doppler and Color Flow revealed no significant aortic regurgitation. Doppler and Color Flow revealed no mitral valve regurgitation noted. Doppler and Color Flow revealed trace tricuspid regurgitation with an estimated PAP of 24 mmHg. Signed by : Walter Poe MD Electronically Approved : 04/22/2019 11:15:49
[2019-04-22] MEDS ORDERED: PRAS10TA9 PO (11:50)
[2019-04-22] MEDS ORDERED: METO25TA4 PO (11:51)
[2019-04-22] MEDS ORDERED: ATOR40TA59 PO (11:52)
--- NOTE | 2019-04-22 15:59 | NUR ---
Discharge Note: CECE DURAN Discharge instructions and discharge home medications reviewed with Patient and a copy given. All questions have been answered and understanding verbalized. The following instructions and handouts were given: Transradial angiography after care, adult moderate sedation, and stent placement after care. Discontinued lines and drains: Lt AC s/l discontinued with catheter intact. dressing placed on site. No bleeding noted at this time. Transradial band removed from rt wrist. Dressing placed with no bleeding noted at this time. Patient discharged to friend's home with friend via private vehicle.
[2019-04-22] MEDS ORDERED: ATORVASTATIN CALCIUM 20 MG TABLET PO SCH (21:00)
[2019-04-22] MEDS ORDERED: METOPROLOL TART IMMED RELEASE 25 MG TABLET. PO SCH (21:00)
[2019-04-23] MEDS ORDERED: PRASUGREL 10 MG TABLET. PO SCH (08:00)
== END 2019-04-22 16:02 | disposition home or self-care (01) ==
LOC: ECHO 06:30
PROVIDERS: ATTEND Internal Medicine Cardiovascular Disease
DX: I25.110 Atherosclerotic heart disease of native coronary artery with unstable angina pectoris (principal); E78.5 Hyperlipidemia, unspecified; E11.9 Type 2 diabetes mellitus without complications; Z79.82 Long term (current) use of aspirin; Z79.4 Long term (current) use of insulin
CPT/HCPCS: 36415; 80048; 85027; 85610; 93306; 93458; 99152; 99153; C1725; C1769; C1874; C1892; C9600; J0583; J1644; J2250; J3010; J3490; J7030; Q9967; 92928; C1713

== ENCOUNTER → 2019-06-28 | Outpatient (CLI) | payer MEDICARE ==
[2019-04-22 15:05] VITALS: BP 123/76
[~2019-06-28] MED LIST changes: +ATOR40TA59 PO; +METO25TA4 PO; +PRAS10TA9 PO
--- NOTE | 2019-06-28 11:43 | RAD ---
MR#: [id number] Date of Study: 06/28/2019 Ordering Physician: BIGG MERRITT, Referring Physician: BIGG MERRITT, Tech: Delvin Pagan MBA, RDMS, RVT, RDCS, RTR APPROVED REPORT Patient Location: OUT-PATIENT Indications Rest Pain:Bilaterally VELOCITY AND DOPPLER WAVEFORM ANALYSIS RIGHT cm/secWaveformSeverity LEFT cm/secWaveform Severity dCFA 104.0TriphasicdCFA 111.0Biphasic Prof Fem Art. 52.0BiphasicProf Fem Art. 66.0Biphasic Fem Art Prox. 111.0TriphasicFem Art Prox. 103.0Triphasic Fem Art Mid. 106.0TriphasicFem Art Mid. 103.0Triphasic Fem Art Dist. 123.0TriphasicFem Art Dist. 102.0Triphasic Pop Art(Fossa) 70.0TriphasicPop Art(AK) 69.0Triphasic STUDENT DEVELOPMENT ADVISOR Prox. 67.0TriphasicPTA Prox. 53.0Triphasic STUDENT DEVELOPMENT ADVISOR Dist. 62.0TriphasicPTA Dist. 63.0Triphasic Per Art Mid. 57.0TriphasicPer Art Mid. 54.0Triphasic CHRISTIAN Prox. 52.0TriphasicATA Prox. 63.0Triphasic DPA 34TriphasicDPA 98Triphasic Findings Grayscale images demonstrate mostly intimal hyperplasia without any significant obstructive plaque. Spectral waveforms are mostly triphasic and biphasic throughout the lower 70 arteries with three-vess el runoff below the knee. No focal high-grade stenosis is identified. Critical Notification Critical Value: No <Conclusion> No significant lower extremity arterial disease. Signed by : Chon Chew, Electronically Approved : 06/28/2019 11:42:35
== END | disposition home or self-care (01) ==
LOC: US 06:31
PROVIDERS: ATTEND Internal Medicine Cardiovascular Disease
DX: M79.662 Pain in left lower leg (principal); M79.661 Pain in right lower leg; I77.3 Arterial fibromuscular dysplasia
CPT/HCPCS: 93925

== ENCOUNTER → 2020-06-12 | Outpatient (CLI) | payer MEDICARE ==
[2019-04-22 15:05] VITALS: BP 123/76
[~2020-06-12] MED LIST changes: -ASPI-612 PO; +ASPI-886 PO; -GLIM2TAB2 PO; +GLIM2TAB7 PO; +SIMV10TA15 PO; -SIMV10TA3 PO
--- NOTE | 2020-06-12 12:21 | CARD ---
MR#: [id number] Date of Study: 06/12/2020 Ordering Physician: BIGG MERRITT, Referring Physician: BIGG MERRITT, Tech: Cielo Mortensen APPROVED REPORT EXAM: Two-dimensional and M-mode echocardiogram with Doppler and color Doppler. Other Information Quality : AverageHR: 60bpm INDICATION Cardiac Disease: CAD RISK FACTORS Hypertension Diabetes 2D DIMENSIONS RVDd3.3 (2.9-3.5cm)Left Atrium(2D)3.8 (1.6-4.0cm) IVSd1.0 (0.7-1.1cm)Aortic Root(2D)3.6 (2.0-3.7cm) LVDd4.9 (3.9-5.9cm)LVOT Diameter2.1 (1.8-2.4cm) PWd0.9 (0.7-1.1cm)LVDs3.7 (2.5-4.0cm) FS (%) 24.4 %SV54.4 ml Aortic Valve AoV Peak Haresh.111.0cm/sAoV VTI25.7cm AO Peak GR.4.9mmHgLVOT Peak Haresh.70.6cm/s LVOT VTI 13.95cmAO Mean GR.3mmHg ALBERTO (VMAX)1.41ik0HJQ (VTI)1.94cm2 AI P 1/2 Pdqf2421iw Mitral Valve MV E Sxklmbsy60.0cm/sMV DECEL CDBC056ur MV A Okteawei29.3cm/sMV E Mean Gr.1mmHg MV WQY12etJ/A Ratio1.1 MVA (PHT)2.98cm2 TDI E/Lateral E'7.5E/Medial E'7.4 Pulmonary Valve PV Peak Pyvavris76.0cm/sPV Peak Grad.3mmHg Tricuspid Valve TR P. Lgjjntbi063ld/sRAP JRGYGQOL6mqCk TR Peak Gr.16nkFsRHJJ68tmPx Pulmonary Vein S1 Borvecgu78.4cm/sD2 Fcobpsbh09.6cm/s PVa itxxtamn077jdfm LEFT VENTRICLE The left ventricle is normal size. There is normal left ventricular wall thickness. The left ventricu lar systolic function is normal and the ejection fraction is within normal range. The Ejection Fracti on is 50-55%. There is normal LV segmental wall motion. Transmitral Doppler flow pattern is Grade II- pseudonormal filling dynamics. RIGHT VENTRICLE The right ventricle is normal size. There is normal right ventricular wall thickness. The right ventr icular systolic function is normal. ATRIA The left atrium size is normal. The right atrium size is normal. The interatrial septum is intact wit h no evidence for an atrial septal defect or patent foramen ovale as noted on 2-D or Doppler imaging. AORTIC VALVE The aortic valve is normal in structure and function. Doppler and Color Flow revealed mild aortic reg urgitation. There is no significant aortic valvular stenosis. Calculated aortic valve area is 1.94 cm 2 with maximum pressure gradient of 6 mmHg and mean pressure gradient of 4 mmHg. MITRAL VALVE The mitral valve is normal in structure and function. There is no evidence of mitral valve prolapse. There is no mitral valve stenosis. Doppler and Color-flow revealed trace mitral regurgitation. TRICUSPID VALVE The tricuspid valve is normal in structure and function. Doppler and Color Flow revealed trace tricus pid regurgitation with an estimated PAP of 26 mmHg. There is no tricuspid valve stenosis. PULMONIC VALVE The pulmonic valve is not well visualized. Doppler and Color Flow revealed trace pulmonic valvular re gurgitation. GREAT VESSELS The aortic root is normal in size. The IVC is normal in size and collapses >50% with inspiration. PERICARDIAL EFFUSION There is no evidence of significant pericardial effusion. Critical Notification Critical Value: No <Conclusion> The left ventricle is normal size. The left ventricular systolic function is normal and the ejection fraction is within normal range. The Ejection Fraction is 50-55%. Doppler and Color Flow revealed mild aortic regurgitation. There is no significant aortic valvular stenosis. Doppler and Color-flow revealed trace mitral regurgitation. Doppler and Color Flow revealed trace tricuspid regurgitation with an estimated PAP of 26 mmHg. Signed by : Walter Poe MD Electronically Approved : 06/12/2020 12:20:44
== END | disposition home or self-care (01) ==
LOC: ECHO 07:35
PROVIDERS: ATTEND Internal Medicine Cardiovascular Disease
DX: I35.1 Nonrheumatic aortic (valve) insufficiency (principal); I25.10 Atherosclerotic heart disease of native coronary artery without angina pectoris
CPT/HCPCS: 93306

== ENCOUNTER → 2020-12-25 | Outpatient (CLI) | payer MEDICARE ==
[2019-04-22 15:05] VITALS: BP 123/76
--- NOTE | 2020-12-25 13:55 | RAD ---
MR#: [id number] Date of Study: 12/25/2020 Ordering Physician: BIGG MERRITT, Referring Physician: GARCIA MAO Tech: LORA Murguia, TIFFANIE (R) (N) APPROVED REPORT Test Type: Exercise Stress Nurse/Tech: Rossi Metcalf R.N. Test Indications: CAD Cardiac History: cardiac stents,htn, DM Medications: See Electronic Medical Record Medical History: See Electronic Medical Record Resting ECG: SR w/ 1st degree AVB Resting Heart Rate: 75 bpm Resting Blood Pressure: 122/72mmHg Pretest Chest Pain: No chest pain Nurse/Tech Notes S1S2,lungs CTA Consent: The procedure was explained to the patient in lay terms. Informed consent was witnessed. Arun eout was entered into [employer]. History and Stress Test performed by KEVIN Becker Stress Symptoms general fatigue, QRS became very wide during activity and for the beginning of recovery period- compl etely returned to baseline by end of recovery period POST EXERCISE Reason for Termination: Reached target heart rate Target HR: Yes Max HR: 156 bpm 120% of Maximum Predicted HR: 130 bpm Exercise duration: 9:10 min:sec, 3 Stage Exercise capacity: 10.0METs Max Blood Pressure: 150/72mmHg Blood Pressure response to exercise: Normal blood pressure response during stress. Heart Rate response to exercise: wnl Chest Pain: No. Arrhythmia: No. occasional pvc ST Change: No. INTERPRETATION Stress EKG Conclusion: Baseline EKG showed sinus rhythm. No ischemic changes at peak stress. No arr hythmias. Imaging Protocol IMAGE PROTOCOL: Rest Tc-99m/stress Tc-99m 1 day Rest: Stress: Viability: Radiopharm.Tc99m CcengjsqmKy64p Sestamibi Imxc32sFs 33mCi Img Date 12/25/2020 12/25/2020 Inj-Img Ezla65alv. 60min. Rest Admin Site:IV - Left AntecubitalAdministrator:KEVIN Becker Stress Admin Site: IV - Left AntecubitalAdministrator: KEVIN Becker STRESS DATA End Diast. Vol.81.0mlLVEDV index BSA46.0ml End Syst. Vol.23.0mlLVESV index BSA13.0ml Myocardial Ghiz420.0gEject. Ouvrpnzq45.0% Stress Scores Regional WT0.00Summed WT0.00 Regional WM0.00Summed WM2.00 Study quality was good. Left Ventricular size was Normal at Rest and Stress. Lung uptake was . Left Ventricular ejection fraction is 69%. The rest and stress images show normal perfusion, normal contraction and thickening. LV Perf. Quant 17 Seg. SSS2.00 17 Seg. SRS4.00 17 Seg. SDS0.00 Stress Defect Extent (% LAD)0.00Rest Defect Extent (% LAD)8.10Rev. Defect Extent (% LAD)0.00 Stress Defect Extent (% LCX) 16.30Rest Defect Extent (% LCX)18.80Rev. Defect Extent (% LCX)0.00 Stress Defect Extent (% RCA)0.00Rest Defect Extent (% RCA)0.00Rev. Defect Extent (% RCA)0.00 Stress Defect Extent (% YONNY)3.70Rest Defect Extent (% YONNY)7.00Rev. Defect Extent (% YONNY)0.00 Conclusion 1. Treadmill exercise cardioisotope stress test did not show any evidence of ischemia or infarct. 2. Normal left ventricular systolic function with ejection fraction calculated at 69%. 3. Patient had good activity tolerance. Low risk for cardiac events. Signed by : Bigg Merritt, Electronically Approved : 12/25/2020 13:54:37
== END ==
LOC: NM 09:08
PROVIDERS: ATTEND Internal Medicine Cardiovascular Disease
DX: I25.10 Atherosclerotic heart disease of native coronary artery without angina pectoris (principal); I10 Essential (primary) hypertension
CPT/HCPCS: 78452; 93017; A9500

== ENCOUNTER → 2021-06-26 | Outpatient (CLI) | payer MEDICARE ==
[2019-04-22 15:05] VITALS: BP 123/76
--- NOTE | 2021-06-26 17:16 | CARD ---
MR#: [id number] Date of Study: 06/26/2021 Ordering Physician: BIGG MERRITT, Referring Physician: BIGG MERRITT Tech: Romina Santizo [facility] APPROVED REPORT EXAM: Two-dimensional and M-mode echocardiogram with Doppler and color Doppler. Other Information Quality : AverageHR: 55bpm Rhythm : NSR INDICATION Cardiac Disease: CAD RISK FACTORS Hypertension Hyperlipidemia 2D DIMENSIONS RVDd3.7 (2.9-3.5cm)Left Atrium(2D)4.1 (1.6-4.0cm) IVSd1.2 (0.7-1.1cm)Aortic Root(2D)3.7 (2.0-3.7cm) LVDd4.2 (3.9-5.9cm)LVOT Diameter2.3 (1.8-2.4cm) PWd0.9 (0.7-1.1cm)LVDs2.8 (2.5-4.0cm) FS (%) 33.8 %SV48.3 ml LVEF(%)63.0 (>50%) Aortic Valve AoV Peak Haresh.129.1cm/sAoV VTI24.9cm AO Peak GR.6.7mmHgLVOT Peak Haresh.73.4cm/s AO Mean GR.3mmHgAVA (VMAX)2.44cm2 AI P 1/2 Fuov072df Mitral Valve MV E Uwullvvs03.6cm/sMV DECEL [id number] MV A Qirzqvyv83.4cm/sE/A Ratio0.7 Pulmonary Valve PV Peak Vqcvxyhh815.7cm/s Tricuspid Valve TR P. Rfpxlugv166hu/sTR Peak Gr.22mmHg LEFT VENTRICLE The left ventricle is normal size. There is borderline concentric left ventricular hypertrophy. The l eft ventricular systolic function is normal. Estimated ejection fraction 55-60%. There is normal LV segmental wall motion. Transmitral Doppler flow pattern is Grade I-abnormal relaxation pattern. RIGHT VENTRICLE The right ventricle is normal size. There is normal right ventricular wall thickness. The right ventr icular systolic function is normal. ATRIA The left atrium size is normal. The right atrium size is normal. The interatrial septum is intact wit h no evidence for an atrial septal defect or patent foramen ovale as noted on 2-D or Doppler imaging. AORTIC VALVE The aortic valve is normal in structure and function. Doppler and Color Flow revealed mild aortic reg urgitation. There is no significant aortic valvular stenosis. MITRAL VALVE The mitral valve is normal in structure and function. There is no evidence of mitral valve prolapse. There is no mitral valve stenosis. Doppler and Color-flow revealed trace mitral regurgitation. TRICUSPID VALVE The tricuspid valve is normal in structure and function. Doppler and Color Flow revealed trace to mil d tricuspid regurgitation. Estimated PAP 25 mmHg. There is no tricuspid valve stenosis. PULMONIC VALVE The pulmonary valve is normal in structure and function. Doppler and Color Flow revealed trace pulmon ic valvular regurgitation. GREAT VESSELS The aortic root is mildly enlarged. The ascending aorta is Mildly dilated. The IVC is normal in size and collapses >50% with inspiration. PERICARDIAL EFFUSION There is no evidence of significant pericardial effusion. Critical Notification Critical Value: No <Conclusion> The left ventricular systolic function is normal. Estimated ejection fraction 55-60%. There is normal LV segmental wall motion. Transmitral Doppler flow pattern is Grade I-abnormal relaxation pattern. Mild aortic regurgitation. Trace mitral regurgitation. Trace to mild tricuspid regurgitation. Estimated PAP 25 mmHg. There is no evidence of significant pericardial effusion. Signed by : Bigg Merritt, Electronically Approved : 06/26/2021 17:16:07
== END ==
LOC: ECHO 13:26
PROVIDERS: ATTEND Internal Medicine Cardiovascular Disease
DX: I08.2 Rheumatic disorders of both aortic and tricuspid valves (principal); I77.819 Aortic ectasia, unspecified site; I25.10 Atherosclerotic heart disease of native coronary artery without angina pectoris
CPT/HCPCS: 93306